=== PATIENT | female | born 1955 | race Caucasian/White ===

== ENCOUNTER 2016-07-15 21:11 | Inpatient (IN) | payer OTHER ==
[~2016-07-15] VITALS: Ht 167.6 cm; Wt 77.4 kg
[2016-07-15 21:32] VITALS: BP 145/72; RESP 18
[2016-07-15] MEDS ORDERED: GLIM2TAB PO (21:39)
[2016-07-15] MEDS ORDERED: BENA20TA48 PO (21:39)
[2016-07-15] MEDS ORDERED: ZOC10 PO (21:39)
[2016-07-15] MEDS ORDERED: METF-382 PO (21:39)
[2016-07-15 21:45] VITALS: Ht 167.6 cm; Wt 77.4 kg
[2016-07-15] MEDS ORDERED: ACETAMINOPHEN 325 MG TAB PO PRN (22:00)
[2016-07-15] MEDS ORDERED: NACL 0.9% 3 ML SYG IV SCH (22:00)
[2016-07-15] MEDS ORDERED: ONDANSETRON 4 MG INJ IV PRN (22:00)
[2016-07-15] MEDS: HYDROCODONE/APAP (5/325) TAB PO PRN (23:04)
--- NOTE | 2016-07-15 23:16 | HP ---
Date/Time of Note Date/Time of Note DATE: 07/15/16 TIME: 23:07 Assessment/Plan VTE Prophylaxis VTE Prophylaxis Intervention: SCD's Assessment/Plan Assessment/Plan 60 yo female with a previous history of type II DM, essential hypertension, Hepatitis C, hyperlipidemia, who presents with a mechanical fall with knee pain. 1. s/p Mechanical fall with right knee fx - will admit the patient to med/surg, consult orthopedic surgery for further evaluation, possible MRI knee, brace needed, PT eval/tx, pain medications, bowel regimen, fall precautions. 2. Type II DM - check hgb1ac, ISS 3. Essential hypertension - c/w with home medications - lisinopril 4. Hyperlipidemia - continue with statin therapy 5. Hepatitis C - standard precautions 6. GI ppx - pepcid po 7. DVT ppx - scds answered all of her questions. as per clinical course. this history and physical took greater then 45 minutes to complete HPI/ROS Admit Date/Time Admit Date/Time Jul 15, 2016 at 23:07 Hx of Present Illness 60 yo female with a previous history of type II DM, essential hypertension, Hepatitis C, hyperlipidemia, who presents with a mechanical fall with knee pain. She was walking yesterday, her toe got caught in a crack and fell forward , hitting both knees and wrists and chest. It was a mechanical fall. She subsequently noticed some scrapes on both knees with swelling. Otherwise denies any loss of consciousness, headaches, dizziness, cardiac chest pain, shortness of breath, fevers/chills, nausea/vomiting/diarrhea/constipation, urinary/bowel irregularities. She had gone to [facility] for evaluation and was transferred here to [facility] for insurance purposes. [facility] XR: Left knee: no acute fractures noted Right Knee: nondisplaced vertical fracture involving medical aspect of right lateral tibial plateau ROS 14 point review of systems completed, please refer to HPI for any positive findings PMH/Family/Social Past Medical History Medical History: diabetes, hepatitis (c), high cholesterol, hypertension Past Surgical History TNA, CYN-BSO, Nephrolithiasis removal Family History Significant Family History: heart disease (mother /father), diabetes (mother / father), hypertension (mother /father) Social History Alcohol Use: none Smoking Status: Never smoker Drug Use: none Exam/Review of Systems Vital Signs Vitals Vital Signs Date Time Temp Pulse Resp B/P Pulse Ox O2 Delivery O2 Flow Rate FiO2 07/15/16 21:32 98.4 68 18 145/72 98 Exam Exam Gen Alethea: mild to moderate distress 2/2 to knee pain and chest pain, AAOx4 HEENT: NC/AT, PERRLA, EOMI, no pharyngeal erythema, no tonsillar exudates, no lymphadenopathy, no JVD, no carotid bruits NECK: supple, no thyromegaly THORAX: symmetrical, no obvious deformities, tenderness to palpation across chest CV: S1S2, RRR, no M/G/R Lungs: CTAB no W/C/R/R Abd: soft, NT/ND, +BS, no rebound, no guarding, neg HSM EXT: right knee in siena bandage, pain with movement, left knee abrasion anterior aspect, edema and pain with movement, no ecchymoses or cyanosis noted Neuro: CN II-XII grossly intact, no focal deficits Psych: good mentation, alert and oriented, good mood and affect Skin: C/D/I Medications Medications Current Medications Ondansetron HCl (Zofran Inj) 4 mg Q6H PRN IV NAUSEA AND/OR VOMITING; Start at 22:00 Acetaminophen (Tylenol Tab) 650 mg Q6H PRN PO PAIN LEVEL 1-3 OR FEVER; Start at 22:00 Acetaminophen/ Hydrocodone Bitart ([place] (5/325)) 1 tab Q6H PRN PO MODERATE PAIN LEVEL 4-6 Last administered on 07/15/16t 23:04; Admin Dose 1 TAB; Start at 22:00 Morphine Sulfate (morphine) 2 mg Q4H PRN IV SEVERE PAIN LEVEL 7-10; Start 07/15 at 22:00 Docusate Sodium (Colace) 100 mg Q12H PRN PO CONSTIPATION; Start 07/15/16 at 22: 00 Famotidine (Pepcid) 20 mg Q12 PO ; Start 07/16/16 at 09:00 Diagnostic Test (Pha) (Accucheck) 1 ea 02 XX ; Start 07/16/16 at 02:00 Miscellaneous Information 1 ea NOTE XX ; Start 07/15/16 at 23:30 Glucose (Glutose) 15 gm Q15M PRN PO DECREASED GLUCOSE; Start 07/15/16 at 23:30 Glucose (Glutose) 22.5 gm Q15M PRN PO DECREASED GLUCOSE; Start 07/15/16 at 23: 30 Dextrose (D50w Syringe) 25 ml Q15M PRN IV DECREASED GLUCOSE; Start 07/15/16 at 23:30 Dextrose (D50w Syringe) 50 ml Q15M PRN IV DECREASED GLUCOSE; Start 07/15/16 at 23:30 Glucagon (Glucagen) 1 mg Q15M PRN IM DECREASED GLUCOSE; Start 07/15/16 at 23:30 Glucose (Glutose) 15 gm Q15M PRN BUCCAL DECREASED GLUCOSE; Start 07/15/16 at 23 :30 LENNOX CLARKE MD Jul 15, 2016 23:16
[2016-07-15 23:22] LABS: CHOL/HDL RATIO 2.2 RATIO; MAGNESIUM 1.9 mg/dl (1.7-2.5)
[2016-07-15] MEDS ORDERED: GLUCAGON 1 MG INJ IM PRN (23:30)
[2016-07-15] MEDS ORDERED: GLUCOSE GEL 15 GRAM TUBE PO PRN ×2 (23:30)
[2016-07-15] MEDS ORDERED: GLUCOSE GEL 15 GRAM TUBE BUCCAL PRN (23:30)
[2016-07-15] MEDS ORDERED: DEXTROSE 50% 50 ML SYRINGE IV PRN ×2 (23:30)
[2016-07-15 23:55] LABS: THYROID STIMULATING HORMONE 2.71 MIU/L (0.465-4.680)
[2016-07-16] MEDS: ACCUCHECK XX SCH (01:54)
[2016-07-16] MEDS: morphine 2 MG INJ IV PRN ×3 (03:18→20:47)
[2016-07-16 04:52] LABS: ADD SCAN DIFF NO
[2016-07-16 04:57] LABS: BASOPHILS % 0.5 % (0.0-2.0); EOSINOPHILS # 0.2 10^3/ul (0.0-0.5); EOSINOPHILS % 2.5 % (0.0-7.0); HEMATOCRIT 35.3 % (37.0-47.0); HEMOGLOBIN 11.1 g/dl (12.0-16.0); LYMPHOCYTES # 2.2 10^3/ul (0.8-2.9); LYMPHOCYTES % 34.6 % (15.0-51.0); MEAN CORPUSCULAR HEMOGLOBIN 29.3 pg (29.0-33.0); MEAN CORPUSCULAR HGB CONC 31.4 g/dl (32.0-37.0); MEAN CORPUSCULAR VOLUME 93.1 fl (82.0-101.0); MEAN PLATELET VOLUME 11.1 fl (7.4-10.4); MONOCYTE # 0.7 10^3/ul (0.3-0.9); MONOCYTES % 10.4 % (0.0-11.0); NEUTROPHIL # 3.3 10^3/ul (1.6-7.5); NEUTROPHILS % 51.8 % (39.0-77.0); PLATELET COUNT 194 10^3/UL (140-415); RED BLOOD COUNT 3.79 10^6/ul (4.20-5.40); RED CELL DISTRIBUTION WIDTH 13.7 % (11.5-14.5); WHITE BLOOD COUNT 6.3 10^3/ul (4.8-10.8)
[2016-07-16 05:15] LABS: INR 1.02; PROTIME 13.4 Sec (12.2-14.2)
[2016-07-16 05:16] LABS: PARTIAL THROMBOPLASTIN TIME 28.1 Sec (25.0-35.0)
[2016-07-16 05:30] LABS: POTASSIUM 4.2 mmol/L (3.5-5.1)
[2016-07-16 05:32] LABS: CREATININE 0.58 mg/dl (0.44-1.00)
[2016-07-16 05:33] LABS: CALCIUM 9.3 mg/dl (8.4-10.2)
[2016-07-16 07:32] VITALS: BP 107/58; RESP 18
[2016-07-16] MEDS: HYDROCODONE/APAP (5/325) TAB PO PRN (07:49)
[2016-07-16] MEDS: INSULIN ASPART [NOVOLOG] 3 ML PEN SC SCH ×4 (07:56→20:45)
[2016-07-16] MEDS: FAMOTIDINE 20 MG TAB PO SCH ×2 (08:04→20:44)
--- NOTE | 2016-07-16 08:56 | CONS ---
DATE OF ADMISSION: 07/15/2016 DATE OF CONSULTATION: 07/16/2016 CHIEF COMPLAINT: Right knee pain. HISTORY OF PRESENT ILLNESS: This is a 60-year-old female with multiple medical comorbidities who stearns d a mechanical fall while walking. The patient was complaining of pain in the right knee. She micah es any numbness or weakness. She is unable to ambulate. She was transferred from [facility]. She denies any loss of consciousness. She denies any chest pain, shortness breath. She has no other complaints. PAST MEDICAL HISTORY: Type 2 diabetes, hypertension, hepatitis C, hyperlipidemia. PAST SURGICAL HISTORY: TAHBSO, kidney stone removal, T and A. MEDICATIONS: Please see chart. SOCIAL HISTORY: The patient lives alone. Denies tobacco, alcohol or drug use. FAMILY HISTORY: None. ALLERGIES: NO KNOWN DRUG ALLERGIES. REVIEW OF SYSTEMS: Negative except for HPI. VITAL SIGNS: Temperature 98.4, blood pressure 145/72, pulse 68, respiratory rate 18. GENERAL: The patient is in no acute distress. She is alert and oriented x3. EXTREMITIES: Right knee: There are no open wounds. There are no deformities. She is tender to pa lpation over the lateral joint line. Her calf is soft, nontender with a negative Homans. She has 5 /5 function of her tibialis anterior, gastrocsoleus and EHL. She has a palpable dorsalis pedis puls e. IMAGING: X-rays right knee: X-rays brought in from outside hospital including 3 views of the right knee demonstrating nondisplaced vertical fracture of the right lateral tibial plateau. There is no joint depression. There is no displacement. There is a questionable signal on the fracture. No o ther fractures or dislocations are seen. X-rays, left knee: Three views of the left knee brought in from an outside hospital do not demonstr ate any fractures or dislocations. IMPRESSION: A 60-year-old female who had a mechanical fall with a right closed nondisplaced vertica l lateral tibial plateau fracture. PLAN: The patient will be placed in a knee immobilizer. She will be nonweightbearing on the right lower extremity. She will be given crutches for ambulation. We will get a CT scan of the right kne e. No surgical intervention is required at this time. She can be discharged with followup as an ou tpatient. Dictated By: MAXIMINO MATTHEWS/SKY Conf#: [id number] DID#: [id number]
--- NOTE | 2016-07-16 10:48 | PN ---
Date/Time of Note Date/Time of Note DATE: 07/16/16 TIME: 10:44 Assessment/Plan VTE Prophylaxis VTE Prophylaxis Intervention: SCD's Lines/Catheters IV Catheter Type (from Nrs): Saline Lock Assessment/Plan Chief Complaint/Hosp Course Assessment/Plan: 60 yo female with a previous history of type II DM, essential hypertension, Hepatitis C, hyperlipidemia, who presents with a mechanical fall with knee pain. 1. s/p Mechanical fall with right knee fx - 3 view xray of the right knee demonstrating nondisplaced vertical fracture of the right lateral tibial plateau. -Per ortho rec's, patient will be placed in a knee immobilizer. She will be nonweightbearing on the right lower extremity. - She will be given crutches for ambulation. - PT consult - f/u CT scan of the right knee. - No surgical intervention is required at this time. - will likely need placement - CM consult 2. Type II DM - f/u hgb1ac, ISS 3. Essential hypertension - c/w with home medications - lisinopril 4. Hyperlipidemia - continue with statin therapy 5. Hepatitis C - standard precautions 6. GI ppx - pepcid po 7. DVT ppx - scds Problems: Subjective 24 Hr Interval Summary Free Text/Dictation Pt seen by ortho team, awaiting PT team eval and knee brace, no acute events overnight. Exam/Review of Systems Vital Signs Vitals Vital Signs Date Time Temp Pulse Resp B/P Pulse Ox O2 Delivery O2 Flow Rate FiO2 07/16/16 07:32 97.3 60 18 107/58 98 Intake and Output 07/15/16 07/15/16 07/16/16 15:00 23:00 07:00 Intake Total 240 ml Output Total 800 ml Balance -560 ml Exam Gen Alethea: mild distress 2/2 to knee pain, AAOx4 HEENT: NC/AT, PERRLA, EOMI, no pharyngeal erythema, no tonsillar exudates, no lymphadenopathy, no JVD, no carotid bruits NECK: supple, no thyromegaly THORAX: symmetrical, no obvious deformities, less tenderness to palpation across chest CV: S1S2, RRR, no M/G/R Lungs: CTAB no W/C/R/R Abd: soft, NT/ND, +BS, no rebound, no guarding, neg HSM EXT: right knee in siena bandage, pain with movement, left knee abrasion anterior aspect, edema and pain with movement, no ecchymoses or cyanosis noted Neuro: CN II-XII grossly intact, no focal deficits Psych: good mentation, alert and oriented, good mood and affect Skin: C/D/I Results Result Diagram: 07/16/16 0415 07/16/16 0415 Results 24 hrs Laboratory Tests Test 07/15/16 21:34 07/15/16 23:00 07/16/16 04:15 07/16/16 07:55 Bedside Glucose 96 102 Cholesterol Level 205 H Cholesterol/HDL Ratio 2.2 HDL Cholesterol 93 Hemoglobin A1c 5.9 LDL Cholesterol, Calculated 85 Magnesium Level 1.9 Thyroid Stimulating Hormone (TSH) 2.710 Triglycerides Level 133 Activated Partial Thromboplast Time 28.1 Anion Gap 13 Basophils # 0.0 Basophils % 0.5 Blood Urea Nitrogen 14 Calcium Level 9.3 Carbon Dioxide Level 28 Chloride Level 105 Creatinine 0.58 Eosinophils # 0.2 Eosinophils % 2.5 Glucose Level 99 Hematocrit 35.3 L Hemoglobin 11.1 L INR International Normalized Ratio 1.02 Lymphocytes # 2.2 Lymphocytes % 34.6 Mean Corpuscular Hemoglobin 29.3 Mean Corpuscular Hemoglobin Concent 31.4 L Mean Corpuscular Volume 93.1 Mean Platelet Volume 11.1 H Monocytes # 0.7 Monocytes % 10.4 Neutrophils # 3.3 Neutrophils % 51.8 Nucleated Red Blood Cells # 0.0 Nucleated Red Blood Cells % 0.0 Platelet Count 194 Potassium Level 4.2 Prothrombin Time 13.4 Prothrombin Time Ratio 1.0 Red Blood Count 3.79 L Red Cell Distribution Width 13.7 Sodium Level 142 White Blood Count 6.3 Medications Medications Current Medications Ondansetron HCl (Zofran Inj) 4 mg Q6H PRN IV NAUSEA AND/OR VOMITING; Start at 22:00 Acetaminophen (Tylenol Tab) 650 mg Q6H PRN PO PAIN LEVEL 1-3 OR FEVER; Start at 22:00 Acetaminophen/ Hydrocodone Bitart ([place] (5/325)) 1 tab Q6H PRN PO MODERATE PAIN LEVEL 4-6 Last administered on 07/16/16t 07:49; Admin Dose 1 TAB; Start at 22:00 Morphine Sulfate (morphine) 2 mg Q4H PRN IV SEVERE PAIN LEVEL 7-10 Last administered on 07/16/16 03:18; Admin Dose 2 MG; Start 07/15/16 at 22:00 Docusate Sodium (Colace) 100 mg Q12H PRN PO CONSTIPATION; Start 07/15/16 at 22: 00 Famotidine (Pepcid) 20 mg Q12 PO Last administered on 07/16/16 08:04; Admin Dose 20 MG; Start 07/16/16 at 09:00 Diagnostic Test (Pha) (Accucheck) 1 ea 02 XX ; Start 07/16/16 at 02:00 Miscellaneous Information 1 ea NOTE XX ; Start 07/15/16 at 23:30 Glucose (Glutose) 15 gm Q15M PRN PO DECREASED GLUCOSE; Start 07/15/16 at 23:30 Glucose (Glutose) 22.5 gm Q15M PRN PO DECREASED GLUCOSE; Start 07/15/16 at 23: 30 Dextrose (D50w Syringe) 25 ml Q15M PRN IV DECREASED GLUCOSE; Start 07/15/16 at 23:30 Dextrose (D50w Syringe) 50 ml Q15M PRN IV DECREASED GLUCOSE; Start 07/15/16 at 23:30 Glucagon (Glucagen) 1 mg Q15M PRN IM DECREASED GLUCOSE; Start 07/15/16 at 23:30 Glucose (Glutose) 15 gm Q15M PRN BUCCAL DECREASED GLUCOSE; Start 07/15/16 at 23 :30 AMELIA TAYLOR Jul 16, 2016 10:48
--- NOTE | 2016-07-16 14:16 | RADRPT ---
PROCEDURE: CT OF THE RIGHT KNEE. CLINICAL INDICATION: Right knee pain, tibial fracture. TECHNIQUE: CT scan of the right knee was performed on a multi-slice scanner. Coronal and sagittal reformatted images were obtained from the axial source images. The total exam DLP equals 422 mGy-cm. CDTIvol = 18 mGy. Images were reviewed on a high-resolution PACS workstation. COMPARISON: None. FINDINGS: There is a nondisplaced fracture of the central to lateral tibial plateau with a vertical fracture l ine measuring at least 5.5 cm cranial-caudal. No other fractures are visualized. There is mild joint space narrowing and osseous spurring within the medial and lateral compartments. The cruciate and collateral ligaments are limited evaluation although unremarkable in appearance. There is mild to moderate joint space narrowing within the lateral patellofemoral compartment with o sseous spurring. Slight lateral tilt of the patella is present. The quadriceps and patellar tendons are unremarkable. There are enthesophytes within the superior p atella at the insertion of the distal quadriceps tendon. Hoffa's fat pad is unremarkable. There is a [id number] joint effusion with lipohemarthrosis. There is no popliteal cyst. There is fatty atrophy of the vastus lateralis muscle. The remaining muscles are unremarkable. RPTAT: ZZ IMPRESSION: 1. Nondisplaced vertical fracture of the central to lateral tibial plateau. 2. 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 3. Mild osteoarthrosis of the medial and lateral compartments. 4. Moderate to large joint effusion with lipohemarthrosis. .Ofelia Edwards MD, Date Time Electronically viewed and signed by .Ofelia Edwards MD, MD on 07/16/2016 14:16 .T/
[2016-07-16 19:29] VITALS: BP 143/69; RESP 18
[2016-07-17] MEDS: HYDROCODONE/APAP (5/325) TAB PO PRN ×2 (01:21→13:49)
[2016-07-17] MEDS: ACCUCHECK XX SCH (02:00)
[2016-07-17 05:30] LABS: ADD SCAN DIFF NO
[2016-07-17 05:35] LABS: BASOPHILS % 0.5 % (0.0-2.0); EOSINOPHILS # 0.2 10^3/ul (0.0-0.5); EOSINOPHILS % 2.6 % (0.0-7.0); HEMATOCRIT 36.7 % (37.0-47.0); HEMOGLOBIN 11.5 g/dl (12.0-16.0); LYMPHOCYTES # 2.1 10^3/ul (0.8-2.9); LYMPHOCYTES % 27.1 % (15.0-51.0); MEAN CORPUSCULAR HGB CONC 31.3 g/dl (32.0-37.0); MEAN CORPUSCULAR VOLUME 92.4 fl (82.0-101.0); MEAN PLATELET VOLUME 11.4 fl (7.4-10.4); MONOCYTE # 0.8 10^3/ul (0.3-0.9); MONOCYTES % 10.3 % (0.0-11.0); NEUTROPHIL # 4.6 10^3/ul (1.6-7.5); NEUTROPHILS % 59.2 % (39.0-77.0); PLATELET COUNT 198 10^3/UL (140-415); RED BLOOD COUNT 3.97 10^6/ul (4.20-5.40); RED CELL DISTRIBUTION WIDTH 13.2 % (11.5-14.5); WHITE BLOOD COUNT 7.8 10^3/ul (4.8-10.8)
[2016-07-17 06:05] LABS: POTASSIUM 4.2 mmol/L (3.5-5.1)
[2016-07-17 06:08] LABS: CREATININE 0.62 mg/dl (0.44-1.00)
[2016-07-17 06:09] LABS: CALCIUM 9.6 mg/dl (8.4-10.2)
[2016-07-17 07:50] VITALS: BP 117/72; RESP 20
[2016-07-17] MEDS: INSULIN ASPART [NOVOLOG] 3 ML PEN SC SCH ×4 (08:15→20:31)
[2016-07-17] MEDS: FAMOTIDINE 20 MG TAB PO SCH ×2 (08:44→20:31)
--- NOTE | 2016-07-17 09:52 | PN ---
Date/Time of Note Date/Time of Note DATE: 07/17/16 TIME: 09:50 Assessment/Plan VTE Prophylaxis VTE Prophylaxis Intervention: SCD's Lines/Catheters IV Catheter Type (from Nrs): Saline Lock Assessment/Plan Chief Complaint/Hosp Course Assessment/Plan: 60 yo female with a previous history of type II DM, essential hypertension, Hepatitis C, hyperlipidemia, who presents with a mechanical fall with knee pain. 1. s/p Mechanical fall with right knee fx - 3 view xray of the right knee demonstrating nondisplaced vertical fracture of the right lateral tibial plateau. -Per ortho rec's, continue knee immobilizer. She will be nonweightbearing on the right lower extremity. - crutches for ambulation. - PT consult - No surgical intervention is required at this time. - will likely need placement - CM consult - working on this 2. Type II DM - f/u hgb1ac, ISS 3. Essential hypertension - c/w with home medications - lisinopril 4. Hyperlipidemia - continue with statin therapy 5. Hepatitis C - standard precautions 6. GI ppx - pepcid po 7. DVT ppx - scds Problems: Subjective 24 Hr Interval Summary Free Text/Dictation Pt still with RLE pain. Has brace in place. Exam/Review of Systems Vital Signs Vitals Vital Signs Date Time Temp Pulse Resp B/P Pulse Ox O2 Delivery O2 Flow Rate FiO2 07/17/16 07:50 97.8 71 20 117/72 96 Intake and Output 07/16/16 07/16/16 07/17/16 15:00 23:00 07:00 Intake Total 1080 ml 580 ml Output Total 600 ml Balance 480 ml 580 ml Exam Gen Alethea: mild distress 2/2 to knee pain, AAOx4 HEENT: NC/AT, PERRLA, EOMI, no pharyngeal erythema, no tonsillar exudates, no lymphadenopathy, no JVD, no carotid bruits NECK: supple, no thyromegaly THORAX: symmetrical, no obvious deformities, less tenderness to palpation across chest CV: S1S2, RRR, no M/G/R Lungs: CTAB no W/C/R/R Abd: soft, NT/ND, +BS, no rebound, no guarding, neg HSM EXT: right knee in siena bandage, pain with movement, left knee abrasion anterior aspect, edema and pain with movement, no ecchymoses or cyanosis noted Neuro: CN II-XII grossly intact, no focal deficits Psych: good mentation, alert and oriented, good mood and affect Skin: C/D/I Results Result Diagram: 07/17/16 0450 07/17/16 0450 Results 24 hrs Laboratory Tests Test 07/16/16 11:37 07/16/16 17:27 07/16/16 20:43 07/17/16 04:50 Bedside Glucose 143 115 152 Anion Gap 15 Basophils # 0.0 Basophils % 0.5 Blood Urea Nitrogen 17 Calcium Level 9.6 Carbon Dioxide Level 29 Chloride Level 102 Creatinine 0.62 Eosinophils # 0.2 Eosinophils % 2.6 Glucose Level 115 Hematocrit 36.7 L Hemoglobin 11.5 L Lymphocytes # 2.1 Lymphocytes % 27.1 Mean Corpuscular Hemoglobin 29.0 Mean Corpuscular Hemoglobin Concent 31.3 L Mean Corpuscular Volume 92.4 Mean Platelet Volume 11.4 H Monocytes # 0.8 Monocytes % 10.3 Neutrophils # 4.6 Neutrophils % 59.2 Nucleated Red Blood Cells # 0.0 Nucleated Red Blood Cells % 0.0 Platelet Count 198 Potassium Level 4.2 Red Blood Count 3.97 L Red Cell Distribution Width 13.2 Sodium Level 142 White Blood Count 7.8 # Test 07/17/16 07:59 Bedside Glucose 112 Medications Medications Current Medications Ondansetron HCl (Zofran Inj) 4 mg Q6H PRN IV NAUSEA AND/OR VOMITING; Start at 22:00 Acetaminophen (Tylenol Tab) 650 mg Q6H PRN PO PAIN LEVEL 1-3 OR FEVER; Start at 22:00 Acetaminophen/ Hydrocodone Bitart ([place] (5/325)) 1 tab Q6H PRN PO MODERATE PAIN LEVEL 4-6 Last administered on 07/17/16 01:21; Admin Dose 1 TAB; Start at 22:00 Morphine Sulfate (morphine) 2 mg Q4H PRN IV SEVERE PAIN LEVEL 7-10 Last administered on 07/16/16 20:47; Admin Dose 2 MG; Start 07/15/16 at 22:00 Docusate Sodium (Colace) 100 mg Q12H PRN PO CONSTIPATION; Start 07/15/16 at 22: 00 Famotidine (Pepcid) 20 mg Q12 PO Last administered on 07/17/16t 08:44; Admin Dose 20 MG; Start 07/16/16 at 09:00 Diagnostic Test (Pha) (Accucheck) 1 ea 02 XX ; Start 07/16/16 at 02:00 Miscellaneous Information 1 ea NOTE XX ; Start 07/15/16 at 23:30 Glucose (Glutose) 15 gm Q15M PRN PO DECREASED GLUCOSE; Start 07/15/16 at 23:30 Glucose (Glutose) 22.5 gm Q15M PRN PO DECREASED GLUCOSE; Start 07/15/16 at 23: 30 Dextrose (D50w Syringe) 25 ml Q15M PRN IV DECREASED GLUCOSE; Start 07/15/16 at 23:30 Dextrose (D50w Syringe) 50 ml Q15M PRN IV DECREASED GLUCOSE; Start 07/15/16 at 23:30 Glucagon (Glucagen) 1 mg Q15M PRN IM DECREASED GLUCOSE; Start 07/15/16 at 23:30 Glucose (Glutose) 15 gm Q15M PRN BUCCAL DECREASED GLUCOSE; Start 07/15/16 at 23 :30 Senna (Senokot) 1 tab BID PO ; Start 07/17/16 at 10:00; Status AMELIA REYNA Jul 17, 2016 09:51
[2016-07-17] MEDS: DOCUSATE SODIUM 100 MG CAP PO PRN (10:00)
[2016-07-17] MEDS: morphine 2 MG INJ IV PRN (10:00)
[2016-07-17 11:11] VITALS: BP 123/78; PULSE 79; RESP 18
[2016-07-17] MEDS: SENNA TAB PO SCH ×2 (11:13→20:31)
[2016-07-17 19:30] VITALS: BP 124/66; PULSE 75; RESP 18
[2016-07-17 20:03] VITALS: BP 133/62; RESP 18
[2016-07-18] MEDS: ACCUCHECK XX SCH (00:31)
[2016-07-18] MEDS: HYDROCODONE/APAP (5/325) TAB PO PRN ×2 (05:21→16:15)
[2016-07-18 05:42] LABS: ADD SCAN DIFF NO
[2016-07-18 05:59] LABS: POTASSIUM 4.1 mmol/L (3.5-5.1)
[2016-07-18 06:02] LABS: CALCIUM 9.6 mg/dl (8.4-10.2); CREATININE 0.52 mg/dl (0.44-1.00)
[2016-07-18 06:56] LABS: BASOPHILS % 0.5 % (0.0-2.0); EOSINOPHILS # 0.2 10^3/ul (0.0-0.5); EOSINOPHILS % 2.8 % (0.0-7.0); HEMATOCRIT 38.2 % (37.0-47.0); LYMPHOCYTES # 2.2 10^3/ul (0.8-2.9); LYMPHOCYTES % 28.7 % (15.0-51.0); MEAN CORPUSCULAR HEMOGLOBIN 29.1 pg (29.0-33.0); MEAN CORPUSCULAR HGB CONC 31.4 g/dl (32.0-37.0); MEAN CORPUSCULAR VOLUME 92.7 fl (82.0-101.0); MEAN PLATELET VOLUME 11.3 fl (7.4-10.4); MONOCYTE # 0.7 10^3/ul (0.3-0.9); MONOCYTES % 8.7 % (0.0-11.0); NEUTROPHIL # 4.5 10^3/ul (1.6-7.5); PLATELET COUNT 195 10^3/UL (140-415); RED BLOOD COUNT 4.12 10^6/ul (4.20-5.40); RED CELL DISTRIBUTION WIDTH 13.3 % (11.5-14.5); WHITE BLOOD COUNT 7.6 10^3/ul (4.8-10.8)
[2016-07-18 07:23] VITALS: BP 131/70; RESP 18
[2016-07-18] MEDS: INSULIN ASPART [NOVOLOG] 3 ML PEN SC SCH ×4 (08:15→20:30)
[2016-07-18] MEDS: SENNA TAB PO SCH ×2 (08:20→20:27)
[2016-07-18] MEDS: FAMOTIDINE 20 MG TAB PO SCH ×2 (08:20→20:27)
[2016-07-18] MEDS: morphine 2 MG INJ IV PRN ×2 (08:24→21:18)
--- NOTE | 2016-07-18 10:03 | PN ---
Date/Time of Note Date/Time of Note DATE: 07/18/16 TIME: 10:02 Assessment/Plan VTE Prophylaxis VTE Prophylaxis Intervention: SCD's Lines/Catheters IV Catheter Type (from Nrs): Saline Lock Assessment/Plan Chief Complaint/Hosp Course Assessment/Plan: 60 yo female with a previous history of type II DM, essential hypertension, Hepatitis C, hyperlipidemia, who presents with a mechanical fall with knee pain. 1. s/p Mechanical fall with right knee fx - 3 view xray of the right knee demonstrating nondisplaced vertical fracture of the right lateral tibial plateau. -Per ortho rec's, continue knee immobilizer. She will be nonweightbearing on the right lower extremity. - crutches for ambulation. - PT consult - No surgical intervention is required at this time. - need placement - CM consult - working on this 2. Type II DM - f/u hgb1ac, ISS 3. Essential hypertension - c/w with home medications - lisinopril 4. Hyperlipidemia - continue with statin therapy 5. Hepatitis C - standard precautions 6. GI ppx - pepcid po 7. DVT ppx - scds Problems: Subjective 24 Hr Interval Summary Free Text/Dictation No acute events overnight. Worked with PT yesterday. Exam/Review of Systems Vital Signs Vitals Vital Signs Date Time Temp Pulse Resp B/P Pulse Ox O2 Delivery O2 Flow Rate FiO2 07/18/16 07:23 98.3 68 18 131/70 97 Intake and Output 07/17/16 07/17/16 07/18/16 15:00 23:00 07:00 Intake Total 1560 ml 480 ml Output Total 1000 ml 1600 ml Balance 560 ml -1120 ml Exam Gen Alethea: mild distress 2/2 to knee pain, AAOx4 HEENT: NC/AT, PERRLA, EOMI, no pharyngeal erythema, no tonsillar exudates, no lymphadenopathy, no JVD, no carotid bruits NECK: supple, no thyromegaly THORAX: symmetrical, no obvious deformities, less tenderness to palpation across chest CV: S1S2, RRR, no M/G/R Lungs: CTAB no W/C/R/R Abd: soft, NT/ND, +BS, no rebound, no guarding, neg HSM EXT: right knee in siena bandage, pain with movement, left knee abrasion anterior aspect, edema and pain with movement, no ecchymoses or cyanosis noted Neuro: CN II-XII grossly intact, no focal deficits Psych: good mentation, alert and oriented, good mood and affect Skin: C/D/I Results Result Diagram: 07/18/16 0505 07/18/16 0505 Results 24 hrs Laboratory Tests Test 07/17/16 11:14 07/17/16 16:35 07/17/16 20:26 07/18/16 05:05 Bedside Glucose 142 121 148 Anion Gap 15 Basophils # 0.0 Basophils % 0.5 Blood Urea Nitrogen 19 Calcium Level 9.6 Carbon Dioxide Level 29 Chloride Level 102 Creatinine 0.52 Eosinophils # 0.2 Eosinophils % 2.8 Glucose Level 113 Hematocrit 38.2 Hemoglobin 12.0 Lymphocytes # 2.2 Lymphocytes % 28.7 Mean Corpuscular Hemoglobin 29.1 Mean Corpuscular Hemoglobin Concent 31.4 L Mean Corpuscular Volume 92.7 Mean Platelet Volume 11.3 H Monocytes # 0.7 Monocytes % 8.7 Neutrophils # 4.5 Neutrophils % 59.0 Nucleated Red Blood Cells # 0.0 Nucleated Red Blood Cells % 0.0 Platelet Count 195 Potassium Level 4.1 Red Blood Count 4.12 L Red Cell Distribution Width 13.3 Sodium Level 142 White Blood Count 7.6 Test 07/18/16 07:46 Bedside Glucose 136 Medications Medications Current Medications Ondansetron HCl (Zofran Inj) 4 mg Q6H PRN IV NAUSEA AND/OR VOMITING; Start at 22:00 Acetaminophen (Tylenol Tab) 650 mg Q6H PRN PO PAIN LEVEL 1-3 OR FEVER; Start at 22:00 Acetaminophen/ Hydrocodone Bitart ([place] (5/325)) 1 tab Q6H PRN PO MODERATE PAIN LEVEL 4-6 Last administered on 07/18/16 05:21; Admin Dose 1 TAB; Start at 22:00 Morphine Sulfate (morphine) 2 mg Q4H PRN IV SEVERE PAIN LEVEL 7-10 Last administered on 07/18/16 08:24; Admin Dose 2 MG; Start 07/15/16 at 22:00 Docusate Sodium (Colace) 100 mg Q12H PRN PO CONSTIPATION Last administered on 10:00; Admin Dose 100 MG; Start 07/15/16 at 22:00 Famotidine (Pepcid) 20 mg Q12 PO Last administered on 07/18/16 08:20; Admin Dose 20 MG; Start 07/16/16 at 09:00 Diagnostic Test (Pha) (Accucheck) 1 ea 02 XX ; Start 07/16/16 at 02:00 Miscellaneous Information 1 ea NOTE XX ; Start 07/15/16 at 23:30 Glucose (Glutose) 15 gm Q15M PRN PO DECREASED GLUCOSE; Start 07/15/16 at 23:30 Glucose (Glutose) 22.5 gm Q15M PRN PO DECREASED GLUCOSE; Start 07/15/16 at 23: 30 Dextrose (D50w Syringe) 25 ml Q15M PRN IV DECREASED GLUCOSE; Start 07/15/16 at 23:30 Dextrose (D50w Syringe) 50 ml Q15M PRN IV DECREASED GLUCOSE; Start 07/15/16 at 23:30 Glucagon (Glucagen) 1 mg Q15M PRN IM DECREASED GLUCOSE; Start 07/15/16 at 23:30 Glucose (Glutose) 15 gm Q15M PRN BUCCAL DECREASED GLUCOSE; Start 07/15/16 at 23 :30 Senna (Senokot) 1 tab BID PO Last administered on 07/18/16 08:20; Admin Dose 1 TAB; Start 07/17/16 at 10:00 AMELIA TAYLOR Jul 18, 2016 10:03
[2016-07-18 19:24] VITALS: BP 113/58; RESP 18
[2016-07-19] MEDS: ACCUCHECK XX SCH (00:16)
[2016-07-19] MEDS: morphine 2 MG INJ IV PRN ×2 (05:11→20:25)
[2016-07-19 06:13] LABS: ADD SCAN DIFF NO
[2016-07-19 06:35] LABS: BASOPHILS % 0.6 % (0.0-2.0); EOSINOPHILS # 0.2 10^3/ul (0.0-0.5); EOSINOPHILS % 3.5 % (0.0-7.0); HEMOGLOBIN 11.8 g/dl (12.0-16.0); LYMPHOCYTES # 2.1 10^3/ul (0.8-2.9); LYMPHOCYTES % 32.5 % (15.0-51.0); MEAN CORPUSCULAR HEMOGLOBIN 29.4 pg (29.0-33.0); MEAN CORPUSCULAR HGB CONC 31.9 g/dl (32.0-37.0); MEAN CORPUSCULAR VOLUME 92.3 fl (82.0-101.0); MEAN PLATELET VOLUME 11.2 fl (7.4-10.4); MONOCYTE # 0.6 10^3/ul (0.3-0.9); NEUTROPHIL # 3.4 10^3/ul (1.6-7.5); NEUTROPHILS % 53.2 % (39.0-77.0); PLATELET COUNT 195 10^3/UL (140-415); RED BLOOD COUNT 4.01 10^6/ul (4.20-5.40); RED CELL DISTRIBUTION WIDTH 13.3 % (11.5-14.5); WHITE BLOOD COUNT 6.4 10^3/ul (4.8-10.8)
[2016-07-19 06:39] LABS: POTASSIUM 4.2 mmol/L (3.5-5.1)
[2016-07-19 06:41] LABS: CREATININE 0.57 mg/dl (0.44-1.00)
[2016-07-19 06:42] LABS: CALCIUM 9.5 mg/dl (8.4-10.2)
[2016-07-19 07:39] VITALS: BP 117/71; RESP 20
[2016-07-19] MEDS: INSULIN ASPART [NOVOLOG] 3 ML PEN SC SCH ×4 (08:15→20:30)
[2016-07-19] MEDS: FAMOTIDINE 20 MG TAB PO SCH ×2 (08:21→20:24)
[2016-07-19] MEDS: SENNA TAB PO SCH ×2 (08:21→20:24)
--- NOTE | 2016-07-19 09:51 | PN ---
Date/Time of Note Date/Time of Note DATE: 07/19/16 TIME: 09:49 Assessment/Plan VTE Prophylaxis VTE Prophylaxis Intervention: SCD's Lines/Catheters IV Catheter Type (from Nrs): Saline Lock Assessment/Plan Chief Complaint/Hosp Course Assessment/Plan: 60 yo female with a previous history of type II DM, essential hypertension, Hepatitis C, hyperlipidemia, who presents with a mechanical fall with knee pain. 1. s/p Mechanical fall with right knee fx - 3 view xray of the right knee demonstrating nondisplaced vertical fracture of the right lateral tibial plateau. -Per ortho rec's, continue knee immobilizer. She will be nonweightbearing on the right lower extremity. - crutches for ambulation. - PT consult - No surgical intervention is required at this time. - need placement - CM consult - working on this 2. Type II DM - f/u hgb1ac, ISS 3. Essential hypertension - c/w with home medications - lisinopril 4. Hyperlipidemia - continue with statin therapy 5. Hepatitis C - standard precautions 6. GI ppx - pepcid po 7. DVT ppx - scds Problems: Subjective 24 Hr Interval Summary Free Text/Dictation Worked with PT yesterday. Exam/Review of Systems Vital Signs Vitals Vital Signs Date Time Temp Pulse Resp B/P Pulse Ox O2 Delivery O2 Flow Rate FiO2 07/19/16 07:39 97.5 70 20 117/71 97 Intake and Output 07/18/16 07/18/16 07/19/16 15:00 23:00 07:00 Intake Total 1340 ml 320 ml Output Total 350 ml 1400 ml Balance 990 ml -1080 ml Exam Gen Alethea: mild distress 2/2 to knee pain, AAOx4 HEENT: NC/AT, PERRLA, EOMI NECK: supple, no thyromegaly THORAX: symmetrical, no obvious deformities, less tenderness to palpation across chest CV: S1S2, RRR, no M/G/R Lungs: CTAB no W/C/R/R Abd: soft, NT/ND, +BS, no rebound, no guarding, neg HSM EXT: right knee in siena bandage, pain with movement, left knee abrasion anterior aspect, edema and pain with movement, no ecchymoses or cyanosis noted Neuro: CN II-XII grossly intact, no focal deficits Psych: good mentation, alert and oriented, good mood and affect Skin: C/D/I Results Result Diagram: 07/19/16 0520 07/19/16 0520 Results 24 hrs Laboratory Tests Test 07/18/16 11:59 07/18/16 17:32 07/18/16 20:28 07/19/16 05:20 Bedside Glucose 160 124 132 Anion Gap 15 Basophils # 0.0 Basophils % 0.6 Blood Urea Nitrogen 20 Calcium Level 9.5 Carbon Dioxide Level 30 Chloride Level 103 Creatinine 0.57 Eosinophils # 0.2 Eosinophils % 3.5 Glucose Level 98 Hematocrit 37.0 Hemoglobin 11.8 L Lymphocytes # 2.1 Lymphocytes % 32.5 Mean Corpuscular Hemoglobin 29.4 Mean Corpuscular Hemoglobin Concent 31.9 L Mean Corpuscular Volume 92.3 Mean Platelet Volume 11.2 H Monocytes # 0.6 Monocytes % 10.0 Neutrophils # 3.4 Neutrophils % 53.2 Nucleated Red Blood Cells # 0.0 Nucleated Red Blood Cells % 0.0 Platelet Count 195 Potassium Level 4.2 Red Blood Count 4.01 L Red Cell Distribution Width 13.3 Sodium Level 144 White Blood Count 6.4 Test 07/19/16 07:43 Bedside Glucose 115 Medications Medications Current Medications Ondansetron HCl (Zofran Inj) 4 mg Q6H PRN IV NAUSEA AND/OR VOMITING; Start at 22:00 Acetaminophen (Tylenol Tab) 650 mg Q6H PRN PO PAIN LEVEL 1-3 OR FEVER; Start at 22:00 Acetaminophen/ Hydrocodone Bitart ([place] (5/325)) 1 tab Q6H PRN PO MODERATE PAIN LEVEL 4-6 Last administered on 07/18/16 16:15; Admin Dose 1 TAB; Start at 22:00 Morphine Sulfate (morphine) 2 mg Q4H PRN IV SEVERE PAIN LEVEL 7-10 Last administered on 07/19/16 05:11; Admin Dose 2 MG; Start 07/15/16 at 22:00 Docusate Sodium (Colace) 100 mg Q12H PRN PO CONSTIPATION Last administered on 10:00; Admin Dose 100 MG; Start 07/15/16 at 22:00 Famotidine (Pepcid) 20 mg Q12 PO Last administered on 07/19/16 08:21; Admin Dose 20 MG; Start 07/16/16 at 09:00 Diagnostic Test (Pha) (Accucheck) 1 ea 02 XX ; Start 07/16/16 at 02:00 Miscellaneous Information 1 ea NOTE XX ; Start 07/15/16 at 23:30 Glucose (Glutose) 15 gm Q15M PRN PO DECREASED GLUCOSE; Start 07/15/16 at 23:30 Glucose (Glutose) 22.5 gm Q15M PRN PO DECREASED GLUCOSE; Start 07/15/16 at 23: 30 Dextrose (D50w Syringe) 25 ml Q15M PRN IV DECREASED GLUCOSE; Start 07/15/16 at 23:30 Dextrose (D50w Syringe) 50 ml Q15M PRN IV DECREASED GLUCOSE; Start 07/15/16 at 23:30 Glucagon (Glucagen) 1 mg Q15M PRN IM DECREASED GLUCOSE; Start 07/15/16 at 23:30 Glucose (Glutose) 15 gm Q15M PRN BUCCAL DECREASED GLUCOSE; Start 07/15/16 at 23 :30 Senna (Senokot) 1 tab BID PO Last administered on 07/19/16 08:21; Admin Dose 1 TAB; Start 07/17/16 at 10:00 AMELIA TAYLOR Jul 19, 2016 09:50
[2016-07-19 19:00] VITALS: BP 119/70; RESP 18
[2016-07-19] MEDS: DOCUSATE SODIUM 100 MG CAP PO PRN (20:24)
[2016-07-19] MEDS ORDERED: MAGNESIUM HYDROXIDE 30ML CUP PO ONE (22:37)
[2016-07-19] MEDS ORDERED: BISACODYL 10 MG SUPP PR PRN (23:00)
[2016-07-20] MEDS: ACCUCHECK XX SCH (01:49)
[2016-07-20 05:33] LABS: ADD SCAN DIFF NO
[2016-07-20 05:43] LABS: BASOPHILS % 0.6 % (0.0-2.0); EOSINOPHILS # 0.2 10^3/ul (0.0-0.5); EOSINOPHILS % 2.8 % (0.0-7.0); HEMATOCRIT 37.2 % (37.0-47.0); HEMOGLOBIN 11.9 g/dl (12.0-16.0); LYMPHOCYTES # 2.1 10^3/ul (0.8-2.9); MEAN CORPUSCULAR HEMOGLOBIN 29.2 pg (29.0-33.0); MEAN CORPUSCULAR VOLUME 91.4 fl (82.0-101.0); MEAN PLATELET VOLUME 10.7 fl (7.4-10.4); MONOCYTE # 0.7 10^3/ul (0.3-0.9); MONOCYTES % 9.4 % (0.0-11.0); NEUTROPHIL # 4.1 10^3/ul (1.6-7.5); NEUTROPHILS % 57.1 % (39.0-77.0); PLATELET COUNT 238 10^3/UL (140-415); RED BLOOD COUNT 4.07 10^6/ul (4.20-5.40); RED CELL DISTRIBUTION WIDTH 13.1 % (11.5-14.5); WHITE BLOOD COUNT 7.1 10^3/ul (4.8-10.8)
[2016-07-20] MEDS: HYDROCODONE/APAP (5/325) TAB PO PRN (05:55)
[2016-07-20 06:22] LABS: POTASSIUM 4.2 mmol/L (3.5-5.1)
[2016-07-20 06:24] LABS: CREATININE 0.56 mg/dl (0.44-1.00)
[2016-07-20 06:25] LABS: CALCIUM 9.8 mg/dl (8.4-10.2)
[2016-07-20 07:34] VITALS: BP 133/68; RESP 18
[2016-07-20] MEDS: INSULIN ASPART [NOVOLOG] 3 ML PEN SC SCH ×4 (08:01→21:00)
[2016-07-20] MEDS: FAMOTIDINE 20 MG TAB PO SCH ×2 (08:01→21:08)
[2016-07-20] MEDS: SENNA TAB PO SCH ×2 (08:01→21:00)
[2016-07-20] MEDS: MAGNESIUM HYDROXIDE 30ML CUP PO SCH (08:19)
[2016-07-20] MEDS ORDERED: MAGNESIUM HYDROXIDE 30ML CUP PO SCH (09:00)
--- NOTE | 2016-07-20 09:57 | PN ---
Date/Time of Note Date/Time of Note DATE: 07/20/16 TIME: 09:55 Assessment/Plan VTE Prophylaxis VTE Prophylaxis Intervention: SCD's Lines/Catheters IV Catheter Type (from Nrs): Saline Lock Assessment/Plan Chief Complaint/Hosp Course Assessment/Plan: 60 yo female with a previous history of type II DM, essential hypertension, Hepatitis C, hyperlipidemia, who presents with a mechanical fall with knee pain. 1. s/p Mechanical fall with right knee fx - 3 view xray of the right knee demonstrating nondisplaced vertical fracture of the right lateral tibial plateau. -Per ortho rec's, continue knee immobilizer. She will be nonweightbearing on the right lower extremity. - crutches for ambulation. - PT consult - No surgical intervention is required at this time. -awaiting placement - CM consult - working on this 2. Type II DM - f/u hgb1ac, ISS 3. Essential hypertension - c/w with home medications - lisinopril 4. Hyperlipidemia - continue with statin therapy 5. Hepatitis C - standard precautions 6. GI ppx - pepcid po 7. DVT ppx - scds Problems: Subjective 24 Hr Interval Summary Free Text/Dictation Still waiting for placement. No acute events overnight. Exam/Review of Systems Vital Signs Vitals Vital Signs Date Time Temp Pulse Resp B/P Pulse Ox O2 Delivery O2 Flow Rate FiO2 07/20/16 07:34 97.6 68 18 133/68 98 Intake and Output 07/19/16 07/19/16 07/20/16 15:00 23:00 07:00 Intake Total 1440 ml 720 ml Output Total 400 ml Balance 1440 ml 320 ml Exam Gen Alethea: mild distress 2/2 to knee pain, AAOx4 HEENT: NC/AT, PERRLA, EOMI NECK: supple, no thyromegaly THORAX: symmetrical, no obvious deformities, less tenderness to palpation across chest CV: S1S2, RRR, no M/G/R Lungs: CTAB no W/C/R/R Abd: soft, NT/ND, +BS, no rebound, no guarding, neg HSM EXT: right knee in siena bandage, pain with movement, left knee abrasion anterior aspect, edema and pain with movement, no ecchymoses or cyanosis noted Neuro: CN II-XII grossly intact, no focal deficits Psych: good mentation, alert and oriented, good mood and affect Skin: C/D/I Results Result Diagram: 07/20/16 0505 07/20/16 0505 Results 24 hrs Laboratory Tests Test 07/19/16 11:58 07/19/16 17:36 07/19/16 20:29 07/20/16 05:05 Bedside Glucose 115 134 164 Anion Gap 15 Basophils # 0.0 Basophils % 0.6 Blood Urea Nitrogen 19 Calcium Level 9.8 Carbon Dioxide Level 33 H Chloride Level 101 Creatinine 0.56 Eosinophils # 0.2 Eosinophils % 2.8 Glucose Level 111 Hematocrit 37.2 Hemoglobin 11.9 L Lymphocytes # 2.1 Lymphocytes % 30.0 Mean Corpuscular Hemoglobin 29.2 Mean Corpuscular Hemoglobin Concent 32.0 Mean Corpuscular Volume 91.4 Mean Platelet Volume 10.7 H Monocytes # 0.7 Monocytes % 9.4 Neutrophils # 4.1 Neutrophils % 57.1 Nucleated Red Blood Cells # 0.0 Nucleated Red Blood Cells % 0.0 Platelet Count 238 # Potassium Level 4.2 Red Blood Count 4.07 L Red Cell Distribution Width 13.1 Sodium Level 145 H White Blood Count 7.1 Test 07/20/16 08:00 Bedside Glucose 126 Medications Medications Current Medications Ondansetron HCl (Zofran Inj) 4 mg Q6H PRN IV NAUSEA AND/OR VOMITING; Start at 22:00 Acetaminophen (Tylenol Tab) 650 mg Q6H PRN PO PAIN LEVEL 1-3 OR FEVER; Start at 22:00 Acetaminophen/ Hydrocodone Bitart ([place] (5/325)) 1 tab Q6H PRN PO MODERATE PAIN LEVEL 4-6 Last administered on 07/20/16 05:55; Admin Dose 1 TAB; Start at 22:00 Morphine Sulfate (morphine) 2 mg Q4H PRN IV SEVERE PAIN LEVEL 7-10 Last administered on 07/19/16 20:25; Admin Dose 2 MG; Start 07/15/16 at 22:00 Docusate Sodium (Colace) 100 mg Q12H PRN PO CONSTIPATION Last administered on 20:24; Admin Dose 100 MG; Start 07/15/16 at 22:00 Famotidine (Pepcid) 20 mg Q12 PO Last administered on 07/20/16 08:01; Admin Dose 20 MG; Start 07/16/16 at 09:00 Diagnostic Test (Pha) (Accucheck) 1 ea 02 XX ; Start 07/16/16 at 02:00 Miscellaneous Information 1 ea NOTE XX ; Start 07/15/16 at 23:30 Glucose (Glutose) 15 gm Q15M PRN PO DECREASED GLUCOSE; Start 07/15/16 at 23:30 Glucose (Glutose) 22.5 gm Q15M PRN PO DECREASED GLUCOSE; Start 07/15/16 at 23: 30 Dextrose (D50w Syringe) 25 ml Q15M PRN IV DECREASED GLUCOSE; Start 07/15/16 at 23:30 Dextrose (D50w Syringe) 50 ml Q15M PRN IV DECREASED GLUCOSE; Start 07/15/16 at 23:30 Glucagon (Glucagen) 1 mg Q15M PRN IM DECREASED GLUCOSE; Start 07/15/16 at 23:30 Glucose (Glutose) 15 gm Q15M PRN BUCCAL DECREASED GLUCOSE; Start 07/15/16 at 23 :30 Senna (Senokot) 1 tab BID PO Last administered on 07/20/16 08:01; Admin Dose 1 TAB; Start 07/17/16 at 10:00 Bisacodyl (Dulcolax Supp) 10 mg ONCE PRN [place] CONSTIPATION Last administered on 05:55; Admin Dose 10 MG; Start 07/19/16 at 23:00 Magnesium Hydroxide (Milk Of Mag) 30 ml DAILY PO Last administered on 07/20/16 08:19; Admin Dose 30 ML; Start 07/20/16 at 09:00 AMELIA TAYLOR Jul 20, 2016 09:57
[2016-07-20] MEDS: SOD CHLORIDE 0.45% 1,000 ML IV SCH (11:04)
[2016-07-20] MEDS: morphine 2 MG INJ IV PRN (16:33)
[2016-07-20 20:00] VITALS: BP 108/61; RESP 18
[2016-07-20 20:31] VITALS: BP 108/61; PULSE 69; RESP 18
[2016-07-21] MEDS: ACCUCHECK XX SCH (02:00)
[2016-07-21] MEDS: SOD CHLORIDE 0.45% 1,000 ML IV SCH ×3 (02:40→20:38)
[2016-07-21 05:32] LABS: ADD SCAN DIFF NO
[2016-07-21 05:59] LABS: BASOPHILS % 0.6 % (0.0-2.0); EOSINOPHILS # 0.3 10^3/ul (0.0-0.5); EOSINOPHILS % 3.9 % (0.0-7.0); HEMATOCRIT 36.5 % (37.0-47.0); HEMOGLOBIN 11.7 g/dl (12.0-16.0); LYMPHOCYTES # 1.9 10^3/ul (0.8-2.9); LYMPHOCYTES % 29.5 % (15.0-51.0); MEAN CORPUSCULAR HEMOGLOBIN 29.5 pg (29.0-33.0); MEAN CORPUSCULAR HGB CONC 32.1 g/dl (32.0-37.0); MEAN CORPUSCULAR VOLUME 92.2 fl (82.0-101.0); MEAN PLATELET VOLUME 11.4 fl (7.4-10.4); MONOCYTE # 0.6 10^3/ul (0.3-0.9); MONOCYTES % 9.4 % (0.0-11.0); NEUTROPHIL # 3.7 10^3/ul (1.6-7.5); NEUTROPHILS % 56.4 % (39.0-77.0); PLATELET COUNT 194 10^3/UL (140-415); RED BLOOD COUNT 3.96 10^6/ul (4.20-5.40); RED CELL DISTRIBUTION WIDTH 13.1 % (11.5-14.5); WHITE BLOOD COUNT 6.5 10^3/ul (4.8-10.8)
[2016-07-21 06:29] LABS: CALCIUM 9.6 mg/dl (8.4-10.2); CREATININE 0.54 mg/dl (0.44-1.00)
[2016-07-21 07:39] VITALS: BP 123/67; RESP 16
[2016-07-21] MEDS: INSULIN ASPART [NOVOLOG] 3 ML PEN SC SCH ×4 (08:15→20:35)
[2016-07-21] MEDS: MAGNESIUM HYDROXIDE 30ML CUP PO SCH (08:24)
[2016-07-21] MEDS: SENNA TAB PO SCH ×2 (08:24→20:24)
[2016-07-21] MEDS: FAMOTIDINE 20 MG TAB PO SCH ×2 (08:25→20:24)
--- NOTE | 2016-07-21 09:18 | PN ---
Date/Time of Note Date/Time of Note DATE: 07/21/16 TIME: 09:17 Assessment/Plan VTE Prophylaxis VTE Prophylaxis Intervention: heparin Lines/Catheters IV Catheter Type (from Nrs): Peripheral IV Urinary Cath still in place: No Assessment/Plan Chief Complaint/Hosp Course Assessment/Plan: 60 yo female with a previous history of type II DM, essential hypertension, Hepatitis C, hyperlipidemia, who presents with a mechanical fall with knee pain. 1. s/p Mechanical fall with right knee fx - 3 view xray of the right knee demonstrating nondisplaced vertical fracture of the right lateral tibial plateau. -Per ortho rec's, continue knee immobilizer. She will be nonweightbearing on the right lower extremity. - crutches for ambulation. - PT consult - No surgical intervention is required at this time. -awaiting placement - CM consult - working on this 2. Type II DM - f/u hgb1ac, ISS 3. Essential hypertension - c/w with home medications - lisinopril 4. Hyperlipidemia - continue with statin therapy 5. Hepatitis C - standard precautions 6. GI ppx - pepcid po 7. DVT ppx - scds Problems: Subjective 24 Hr Interval Summary Free Text/Dictation No acute events overnight. Exam/Review of Systems Vital Signs Vitals Vital Signs Date Time Temp Pulse Resp B/P Pulse Ox O2 Delivery O2 Flow Rate FiO2 07/21/16 07:39 98.3 64 16 123/67 90 Intake and Output 07/20/16 07/20/16 07/21/16 15:00 23:00 07:00 Intake Total 1120 ml 1610 ml Output Total 1250 ml Balance 1120 ml 360 ml Exam Gen Alethea: mild distress 2/2 to knee pain, AAOx4 HEENT: NC/AT, PERRLA, EOMI NECK: supple, no thyromegaly THORAX: symmetrical, no obvious deformities, less tenderness to palpation across chest CV: S1S2, RRR, no M/G/R Lungs: CTAB no W/C/R/R Abd: soft, NT/ND, +BS, no rebound, no guarding, neg HSM EXT: right knee in siena bandage, pain with movement, left knee abrasion anterior aspect, edema and pain with movement, no ecchymoses or cyanosis noted Neuro: CN II-XII grossly intact, no focal deficits Psych: good mentation, alert and oriented, good mood and affect Results Result Diagram: 07/21/16 0458 07/21/16 0458 Results 24 hrs Laboratory Tests Test 07/20/16 12:08 07/20/16 17:25 07/20/16 21:06 07/21/16 04:58 Bedside Glucose 137 111 140 Anion Gap 14 Basophils # 0.0 Basophils % 0.6 Blood Urea Nitrogen 22 H Calcium Level 9.6 Carbon Dioxide Level 28 Chloride Level 104 Creatinine 0.54 Eosinophils # 0.3 Eosinophils % 3.9 Glucose Level 115 Hematocrit 36.5 L Hemoglobin 11.7 L Lymphocytes # 1.9 Lymphocytes % 29.5 Mean Corpuscular Hemoglobin 29.5 Mean Corpuscular Hemoglobin Concent 32.1 Mean Corpuscular Volume 92.2 Mean Platelet Volume 11.4 H Monocytes # 0.6 Monocytes % 9.4 Neutrophils # 3.7 Neutrophils % 56.4 Nucleated Red Blood Cells # 0.0 Nucleated Red Blood Cells % 0.0 Platelet Count 194 Potassium Level 4.0 Red Blood Count 3.96 L Red Cell Distribution Width 13.1 Sodium Level 142 White Blood Count 6.5 Test 07/21/16 07:51 Bedside Glucose 106 Medications Medications Current Medications Ondansetron HCl (Zofran Inj) 4 mg Q6H PRN IV NAUSEA AND/OR VOMITING; Start at 22:00 Acetaminophen (Tylenol Tab) 650 mg Q6H PRN PO PAIN LEVEL 1-3 OR FEVER; Start at 22:00 Acetaminophen/ Hydrocodone Bitart ([place] (5/325)) 1 tab Q6H PRN PO MODERATE PAIN LEVEL 4-6 Last administered on 07/20/16 05:55; Admin Dose 1 TAB; Start at 22:00 Morphine Sulfate (morphine) 2 mg Q4H PRN IV SEVERE PAIN LEVEL 7-10 Last administered on 07/20/16 16:33; Admin Dose 2 MG; Start 07/15/16 at 22:00 Docusate Sodium (Colace) 100 mg Q12H PRN PO CONSTIPATION Last administered on 20:24; Admin Dose 100 MG; Start 07/15/16 at 22:00 Famotidine (Pepcid) 20 mg Q12 PO Last administered on 07/21/16 08:25; Admin Dose 20 MG; Start 07/16/16 at 09:00 Diagnostic Test (Pha) (Accucheck) 1 ea 02 XX ; Start 07/16/16 at 02:00 Miscellaneous Information 1 ea NOTE XX ; Start 07/15/16 at 23:30 Glucose (Glutose) 15 gm Q15M PRN PO DECREASED GLUCOSE; Start 07/15/16 at 23:30 Glucose (Glutose) 22.5 gm Q15M PRN PO DECREASED GLUCOSE; Start 07/15/16 at 23: 30 Dextrose (D50w Syringe) 25 ml Q15M PRN IV DECREASED GLUCOSE; Start 07/15/16 at 23:30 Dextrose (D50w Syringe) 50 ml Q15M PRN IV DECREASED GLUCOSE; Start 07/15/16 at 23:30 Glucagon (Glucagen) 1 mg Q15M PRN IM DECREASED GLUCOSE; Start 07/15/16 at 23:30 Glucose (Glutose) 15 gm Q15M PRN BUCCAL DECREASED GLUCOSE; Start 07/15/16 at 23 :30 Senna (Senokot) 1 tab BID PO Last administered on 07/20/16 08:01; Admin Dose 1 TAB; Start 07/17/16 at 10:00 Bisacodyl (Dulcolax Supp) 10 mg ONCE PRN [place] CONSTIPATION Last administered on 05:55; Admin Dose 10 MG; Start 07/19/16 at 23:00 Magnesium Hydroxide 30 ml 30 ml DAILY PO Last administered on 07/20/16 08:19; Admin Dose 30 ML; Start 07/20/16 at 09:00 Sodium Chloride (1/2 NS) 1,000 ml @ 60 mls/hr [id number] IV Last administered on 07/21/16 04:48; Admin Dose 60 MLS/HR; Start 07/20/16 at 10:00 AMELIA TAYLOR Jul 21, 2016 09:18
[2016-07-21 20:00] VITALS: BP 121/67; RESP 16
[2016-07-21] MEDS: HEPARIN 5,000 UNIT/0.5 ML SYG SC SCH (20:36)
[2016-07-22] MEDS: ACCUCHECK XX SCH (02:00)
[2016-07-22] MEDS: INSULIN ASPART [NOVOLOG] 3 ML PEN SC SCH ×4 (08:15→21:00)
[2016-07-22] MEDS: SENNA TAB PO SCH ×2 (08:28→20:55)
[2016-07-22] MEDS: FAMOTIDINE 20 MG TAB PO SCH ×2 (08:28→20:56)
[2016-07-22] MEDS: MAGNESIUM HYDROXIDE 30ML CUP PO SCH (08:29)
[2016-07-22] MEDS: HEPARIN 5,000 UNIT/0.5 ML SYG SC SCH ×2 (08:31→21:04)
[2016-07-22 09:21] VITALS: BP 133/69; PULSE 62; RESP 17
[2016-07-22] MEDS: SOD CHLORIDE 0.45% 1,000 ML IV SCH (12:00)
--- NOTE | 2016-07-22 13:03 | PN ---
Date/Time of Note Date/Time of Note DATE: 07/22/16 TIME: 13:03 Assessment/Plan VTE Prophylaxis VTE Prophylaxis Intervention: heparin Lines/Catheters IV Catheter Type (from Nrs): Peripheral IV Urinary Cath still in place: No Assessment/Plan Chief Complaint/Hosp Course Assessment/Plan: 60 yo female with a previous history of type II DM, essential hypertension, Hepatitis C, hyperlipidemia, who presents with a mechanical fall with knee pain. 1. s/p Mechanical fall with right knee fx - 3 view xray of the right knee demonstrating nondisplaced vertical fracture of the right lateral tibial plateau. -Per ortho rec's, continue knee immobilizer. She will be nonweightbearing on the right lower extremity. - crutches for ambulation. - PT consult - No surgical intervention is required at this time. -awaiting placement - CM consult - working on this 2. Type II DM - f/u hgb1ac, ISS 3. Essential hypertension - c/w with home medications - lisinopril 4. Hyperlipidemia - continue with statin therapy 5. Hepatitis C - standard precautions 6. GI ppx - pepcid po 7. DVT ppx - scds Dispo: awaiting placement to SNF. Problems: Subjective 24 Hr Interval Summary Free Text/Dictation No acute events overnight. Exam/Review of Systems Vital Signs Vitals Vital Signs Date Time Temp Pulse Resp B/P Pulse Ox O2 Delivery O2 Flow Rate FiO2 07/22/16 09:21 98.0 62 17 133/69 99 Intake and Output 07/21/16 07/21/16 07/22/16 15:00 23:00 07:00 Intake Total 1950 ml 510 ml Output Total 1200 ml Balance 750 ml 510 ml Exam Gen Alethea: mild distress 2/2 to knee pain, AAOx4 HEENT: NC/AT, PERRLA, EOMI NECK: supple, no thyromegaly THORAX: symmetrical, no obvious deformities, less tenderness to palpation across chest CV: S1S2, RRR, no M/G/R Lungs: CTAB no W/C/R/R Abd: soft, NT/ND, +BS, no rebound, no guarding, neg HSM EXT: right knee in siena bandage, pain with movement, left knee abrasion anterior aspect, edema and pain with movement, no ecchymoses or cyanosis noted Neuro: CN II-XII grossly intact, no focal deficits Psych: good mentation, alert and oriented, good mood and affect Results Result Diagram: 07/21/16 0458 07/21/16 0458 Results 24 hrs Laboratory Tests Test 07/21/16 17:22 07/21/16 20:23 07/22/16 03:06 07/22/16 07:45 Bedside Glucose 132 187 109 99 Test 07/22/16 11:56 Bedside Glucose 166 Medications Medications Current Medications Ondansetron HCl (Zofran Inj) 4 mg Q6H PRN IV NAUSEA AND/OR VOMITING; Start at 22:00 Acetaminophen (Tylenol Tab) 650 mg Q6H PRN PO PAIN LEVEL 1-3 OR FEVER; Start at 22:00 Acetaminophen/ Hydrocodone Bitart ([place] (5/325)) 1 tab Q6H PRN PO MODERATE PAIN LEVEL 4-6 Last administered on 07/20/16 05:55; Admin Dose 1 TAB; Start at 22:00 Morphine Sulfate (morphine) 2 mg Q4H PRN IV SEVERE PAIN LEVEL 7-10 Last administered on 07/20/16 16:33; Admin Dose 2 MG; Start 07/15/16 at 22:00 Docusate Sodium (Colace) 100 mg Q12H PRN PO CONSTIPATION Last administered on 20:24; Admin Dose 100 MG; Start 07/15/16 at 22:00 Famotidine (Pepcid) 20 mg Q12 PO Last administered on 07/22/16 08:28; Admin Dose 20 MG; Start 07/16/16 at 09:00 Diagnostic Test (Pha) (Accucheck) 1 ea 02 XX Last administered on 07/22/16 02: 00; Admin Dose 1 EA; Start 07/16/16 at 02:00 Miscellaneous Information 1 ea NOTE XX ; Start 07/15/16 at 23:30 Glucose (Glutose) 15 gm Q15M PRN PO DECREASED GLUCOSE; Start 07/15/16 at 23:30 Glucose (Glutose) 22.5 gm Q15M PRN PO DECREASED GLUCOSE; Start 07/15/16 at 23: 30 Dextrose (D50w Syringe) 25 ml Q15M PRN IV DECREASED GLUCOSE; Start 07/15/16 at 23:30 Dextrose (D50w Syringe) 50 ml Q15M PRN IV DECREASED GLUCOSE; Start 07/15/16 at 23:30 Glucagon (Glucagen) 1 mg Q15M PRN IM DECREASED GLUCOSE; Start 07/15/16 at 23:30 Glucose (Glutose) 15 gm Q15M PRN BUCCAL DECREASED GLUCOSE; Start 07/15/16 at 23 :30 Senna (Senokot) 1 tab BID PO Last administered on 07/22/16 08:28; Admin Dose 1 TAB; Start 07/17/16 at 10:00 Bisacodyl (Dulcolax Supp) 10 mg ONCE PRN [place] CONSTIPATION Last administered on 05:55; Admin Dose 10 MG; Start 07/19/16 at 23:00 Magnesium Hydroxide 30 ml 30 ml DAILY PO Last administered on 07/22/16 08:29; Admin Dose 30 ML; Start 07/20/16 at 09:00 Sodium Chloride (1/2 NS) 1,000 ml @ 60 mls/hr [id number] IV Last administered on 07/21/16 20:38; Admin Dose 60 MLS/HR; Start 07/20/16 at 10:00 Heparin Sodium (Porcine) (Heparin (5000 Units/0.5 ml)) 5,000 unit BID SC Last administered on 07/22/16 08:31; Admin Dose 5,000 UNIT; Start 07/21/16 at 21:00 AMELIA TAYLOR Jul 22, 2016 13:03
[2016-07-22 19:30] VITALS: BP 117/71; RESP 18
[2016-07-23] MEDS: SOD CHLORIDE 0.45% 1,000 ML IV SCH ×2 (01:22→17:17)
[2016-07-23] MEDS: ACCUCHECK XX SCH (02:00)
[2016-07-23 08:14] VITALS: BP 140/64; RESP 19
[2016-07-23] MEDS: INSULIN ASPART [NOVOLOG] 3 ML PEN SC SCH ×4 (08:15→21:16)
[2016-07-23] MEDS: MAGNESIUM HYDROXIDE 30ML CUP PO SCH (08:25)
[2016-07-23] MEDS: FAMOTIDINE 20 MG TAB PO SCH ×2 (08:26→20:35)
[2016-07-23] MEDS: SENNA TAB PO SCH ×2 (08:26→20:35)
[2016-07-23] MEDS: HYDROCODONE/APAP (5/325) TAB PO PRN ×2 (08:26→17:17)
[2016-07-23] MEDS: HEPARIN 5,000 UNIT/0.5 ML SYG SC SCH ×2 (08:28→20:37)
--- NOTE | 2016-07-23 10:46 | PN ---
Date/Time of Note Date/Time of Note DATE: 07/23/16 TIME: 10:45 Assessment/Plan VTE Prophylaxis VTE Prophylaxis Intervention: SCD's Lines/Catheters IV Catheter Type (from Nrsg): Peripheral IV Urinary Cath still in place: No Assessment/Plan Assessment/Plan 1. s/p Mechanical fall with right knee fx - 3 view xray of the right knee demonstrating nondisplaced vertical fracture of the right lateral tibial plateau. -Per ortho rec's, continue knee immobilizer. She will be nonweightbearing on the right lower extremity. - crutches for ambulation. - PT consult - No surgical intervention is required at this time. -awaiting placement - CM consult - working on this 2. Type II DM - f/u hgb1ac, ISS 3. Essential hypertension - c/w with home medications - lisinopril 4. Hyperlipidemia - continue with statin therapy 5. Hepatitis C - standard precautions 6. GI ppx - pepcid po 7. DVT ppx - scds Dispo: awaiting placement to SNF. Subjective 24 Hr Interval Summary Free Text/Dictation pain controlled, no acute events, awaiting placement Exam/Review of Systems Vital Signs Vitals Vital Signs Date Time Temp Pulse Resp B/P Pulse Ox O2 Delivery O2 Flow Rate FiO2 07/23/16 08:14 97.3 64 19 140/64 96 Intake and Output 07/22/16 07/22/16 07/23/16 15:00 23:00 07:00 Intake Total 2280 ml 860 ml Output Total 1600 ml 1100 ml Balance 680 ml -240 ml Exam Gen Alethea: mild distress 2/2 to knee pain, AAOx4 HEENT: NC/AT, PERRLA, EOMI NECK: supple, no thyromegaly THORAX: symmetrical, no obvious deformities, less tenderness to palpation across chest CV: S1S2, RRR, no M/G/R Lungs: CTAB no W/C/R/R Abd: soft, NT/ND, +BS, no rebound, no guarding, neg HSM EXT: right knee in siena bandage, pain with movement, left knee abrasion anterior aspect, edema and pain with movement, no ecchymoses or cyanosis noted Neuro: CN II-XII grossly intact, no focal deficits Psych: good mentation, alert and oriented, good mood and affect Results Result Diagram: 07/21/16 0458 07/21/16 0458 Results 24 hrs Laboratory Tests Test 07/22/16 11:56 07/22/16 17:15 07/22/16 20:54 07/23/16 08:14 Bedside Glucose 166 127 162 100 Medications Medications Current Medications Ondansetron HCl (Zofran Inj) 4 mg Q6H PRN IV NAUSEA AND/OR VOMITING; Start at 22:00 Acetaminophen (Tylenol Tab) 650 mg Q6H PRN PO PAIN LEVEL 1-3 OR FEVER; Start at 22:00 Acetaminophen/ Hydrocodone Bitart ([place] (5/325)) 1 tab Q6H PRN PO MODERATE PAIN LEVEL 4-6 Last administered on 07/23/16 08:26; Admin Dose 1 TAB; Start at 22:00 Morphine Sulfate (morphine) 2 mg Q4H PRN IV SEVERE PAIN LEVEL 7-10 Last administered on 07/20/16 16:33; Admin Dose 2 MG; Start 07/15/16 at 22:00 Docusate Sodium (Colace) 100 mg Q12H PRN PO CONSTIPATION Last administered on 20:24; Admin Dose 100 MG; Start 07/15/16 at 22:00 Famotidine (Pepcid) 20 mg Q12 PO Last administered on 07/23/16 08:26; Admin Dose 20 MG; Start 07/16/16 at 09:00 Diagnostic Test (Pha) (Accucheck) 1 ea 02 XX Last administered on 07/22/16 02: 00; Admin Dose 1 EA; Start 07/16/16 at 02:00 Miscellaneous Information 1 ea NOTE XX ; Start 07/15/16 at 23:30 Glucose (Glutose) 15 gm Q15M PRN PO DECREASED GLUCOSE; Start 07/15/16 at 23:30 Glucose (Glutose) 22.5 gm Q15M PRN PO DECREASED GLUCOSE; Start 07/15/16 at 23: 30 Dextrose (D50w Syringe) 25 ml Q15M PRN IV DECREASED GLUCOSE; Start 07/15/16 at 23:30 Dextrose (D50w Syringe) 50 ml Q15M PRN IV DECREASED GLUCOSE; Start 07/15/16 at 23:30 Glucagon (Glucagen) 1 mg Q15M PRN IM DECREASED GLUCOSE; Start 07/15/16 at 23:30 Glucose (Glutose) 15 gm Q15M PRN BUCCAL DECREASED GLUCOSE; Start 07/15/16 at 23 :30 Senna (Senokot) 1 tab BID PO Last administered on 07/23/16 08:26; Admin Dose 1 TAB; Start 07/17/16 at 10:00 Bisacodyl (Dulcolax Supp) 10 mg ONCE PRN [place] CONSTIPATION Last administered on 05:55; Admin Dose 10 MG; Start 07/19/16 at 23:00 Magnesium Hydroxide 30 ml 30 ml DAILY PO Last administered on 07/23/16 08:25; Admin Dose 30 ML; Start 07/20/16 at 09:00 Sodium Chloride (1/2 NS) 1,000 ml @ 60 mls/hr [id number] IV Last administered on 07/23/16 01:22; Admin Dose 60 MLS/HR; Start 07/20/16 at 10:00 Heparin Sodium (Porcine) (Heparin (5000 Units/0.5 ml)) 5,000 unit BID SC Last administered on 07/23/16 08:28; Admin Dose 5,000 UNIT; Start 07/21/16 at 21:00 JEWEL NAVARRETE MD Jul 23, 2016 10:45
[2016-07-23 19:52] VITALS: BP 118/66; RESP 18
[2016-07-24] MEDS: morphine 2 MG INJ IV PRN (01:30)
[2016-07-24] MEDS: ACCUCHECK XX SCH (02:50)
[2016-07-24 07:14] VITALS: BP 127/66; RESP 24
[2016-07-24] MEDS: SOD CHLORIDE 0.45% 1,000 ML IV SCH ×2 (07:30→14:00)
[2016-07-24] MEDS: MAGNESIUM HYDROXIDE 30ML CUP PO SCH (07:56)
[2016-07-24] MEDS: SENNA TAB PO SCH (07:56)
[2016-07-24] MEDS: FAMOTIDINE 20 MG TAB PO SCH (07:56)
[2016-07-24] MEDS: HYDROCODONE/APAP (5/325) TAB PO PRN (07:57)
[2016-07-24] MEDS: HEPARIN 5,000 UNIT/0.5 ML SYG SC SCH (08:06)
[2016-07-24] MEDS: INSULIN ASPART [NOVOLOG] 3 ML PEN SC SCH ×2 (08:15→12:06)
--- NOTE | 2016-07-24 11:42 | PDOCDIS ---
Discharge Instructions CONDITION Patient Condition: Good HOME CARE INSTRUCTIONS: Special Diet: diabetic ACTIVITY: Activity Restrictions: Slowly Increase Activity Rest between Activity Avoid heavy lifting Avoid Heavy Housework Weight Bearing (NO weight bearing on RLE until cleared by Orthopedic, Use crutches for ambulation ) FOLLOW UP/APPOINTMENTS Appointments folllow up with orthopedic Dr.SHAHIN ELIDIA PUTNAM in 2-3 weeks as outpatient( she will need authorization from insurance to see this physician), Follow up with her own PMD through HMO Insurance in 1-2 week after discharge JEWEL NAVARRETE MD Jul 24, 2016 11:42
--- NOTE | 2016-07-25 23:54 | DS ---
DATE OF ADMISSION: 07/15/2016 DATE OF DISCHARGE: 07/24/2016 FINAL DISCHARGE DIAGNOSES: 1. Status post mechanical fall with right knee fracture status post right knee immobilizer. No kim gical intervention. 2. Type 2 diabetes mellitus. 3. History of essential hypertension. 4. History of hyperlipidemia. 5. History of hepatitis C. 6. Status post mechanical fall. CONSULTATIONS DONE DURING THIS HOSPITALIZATION: Orthopedic surgery consult, Dr. Maximino To . HOSPITAL COURSE: This is a 60-year-old female with a past medical history of hypertension, hepatiti s C, hyperlipidemia, type 2 diabetes mellitus, history of essential hypertension who presented with a mechanical fall with knee pain. She is noted to have a right knee fracture, so she was evaluated by orthopedic surgery. The patient was recommended to have a knee immobilization . No surgica l intervention she required during this hospitalization. The patient was complaining of significant pain limiting her ambulation with physical therapy so she was set [facility] for a [facility] plac[facility] upon discharge and she gets discharged to a [facility] facility on 07/24/2016. DISPOSITION: To a [facility] facility. DISCHARGE CONDITION: Stable and improved compared to admission. DISCHARGE ACTIVITIES: As tolerated, slowly resume to the normal baseline activity. DISCHARGE DIET: Low fat, low sodium, ADA 1800 kilocalorie diet. DISCHARGE MEDICATIONS: As per medical reconciliation. DISCHARGE FOLLOWUP AND INSTRUCTIONS: 1. The patient is to follow up with her own primary care doctor in 1 to 2 weeks after discharge. 2. The patient is to follow up with orthopedic surgery as outpatient in 1 to 2 weeks after discharg e. She has been explained about the discharge plan and followup instructions. She understood and verba lized understanding. Dictated By: JEWEL NAVARRETE MD, KP/NTS Conf#: [id number] DID#: [id number] CC: MAXIMINO TO MD; LUIS SOUSA MD;*EndCC*
== END 2016-07-24 18:15 | DRG 563 ==
LOC: MS2 21:11
PROVIDERS: ADMIT Family Medicine; ATTEND Family Medicine
DX: S82.144A Nondisplaced bicondylar fracture of right tibia, initial encounter for closed fracture (principal); I10 Essential (primary) hypertension; W18.30XA Fall on same level, unspecified, initial encounter; Y93.01 Activity, walking, marching and hiking; Y92.9 Unspecified place or not applicable; M17.31 Unilateral post-traumatic osteoarthritis, right knee; E11.9 Type 2 diabetes mellitus without complications; B19.20 Unspecified viral hepatitis C without hepatic coma; E78.5 Hyperlipidemia, unspecified
CPT/HCPCS: 73700; 80048; 80061; 82962; 83036; 83735; 84443; 85025; 85610; 85730; 97110; 97162; 97530; J1815; J2270